=== PATIENT | female | born 1930 | race Caucasian/White ===

== ENCOUNTER 2017-03-15 02:50 | Emergency (ER) | payer OTHER ==
[~2017-03-15] VITALS: Ht 157.5 cm; Wt 65.0 kg
[~2017-03-15 02:50] MED LIST: ACYCLOVIR400 MG PO; AMBIEN5 MG PO; AMITRIPTYLINE H50 MG; AMOXICILLIN875 MG PO; ASPIR 8181 M1 PO; ASPIRIN81 M2 PO; ATIVAN1 MG PO; ATORVASTATIN CA40 MG PO; BACTRIM,SEPT1 TABLET PO; BUSPAR5 MG PO; CALCIUM 600 +1 EA11 PO; CALCIUM 600 +1 EAC7 PO; CELEXA20 MG PO; CLOPIDOGREL75 MG PO; COGENTIN0.5 MG PO; COUGH SYRU100 MG/5 M PO; DESYREL100 MG PO; DULCOLAX10 MG PR; DUONEB 2.5-0.5 M3 ML AEROSOL; DUONEB 2.5-0.5 M3 ML PEP; ELAVIL50 MG PO; FLEET ENEMA-AD118 ML PR; IMDUR60 MG PO; ISOSORBIDE MONO30 MG; ISOSORBIDE MONO60 MG PO; JANUVIA25 MG; JANUVIA25 MG PO; LASIX40 MG PO; LISINOPRIL10 MG PO; LOPRESSOR25 MG PO; MASOPHEN325 MG PO; MELATIN3 MG PO; METAMUCIL CAPSU1 CAP PO; MILK OF MAGNESI10 ML PO; MIRALAX255 GM PO; NORVASC5 MG PO; NOVOLOG MI100 UNIT/4; NOVOLOG MI100 UNIT/4 SC; NOVOLOG MI100 UNIT/4 SQ; OMEPRAZOLE40 M1 PO; PAIN RELIEF650 MG PO; PAXIL40 MG PO; PLAVIX75 MG PO; POLYETHYLENE GL17 GM PO; PRILOSEC20 MG PO; PRINIVIL10 MG PO; REMERON15 M2 PO; REQUIP0.25 MG PO; RISPERDAL0.5 MG PO; RISPERDAL1 MG PO; RISPERIDONE1 MG; SEROQUEL50 MG PO; SIMVASTATIN40 MG; SIMVASTATIN40 MG PO; TRAZODONE HCL100 MG PO; TYLENOL REGULA325 MG PO; VESICARE5 MG; VESICARE5 MG PO; XANAX0.5 MG PO; ZETIA10 MG PO; ZOVIRAX400 MG PO
[2017-03-15 03:28] LABS: BASOPHIL COUNT 0.1 K/uL (0-0.1); EOSINOPHIL (%) 4.9 % (0-5); EOSINOPHIL COUNT 0.4 K/uL (0-0.3); HEMATOCRIT 35.3 % (36.0-46.0); IMMATURE GRANULOCYTE (%) 0.5 % (0.0-0.7); INSTRUMENT ABS NEUTROPHIL CT 5.2 K/uL; LYMPHOCYTE COUNT 1.7 K/uL (1.0-2.8); MCH 29.8 PG (29.0-34.0); MCHC 33.1 G/DL (30.0-36.0); MCV 90.1 FL (83-99); MEAN PLAT.VOLUME 10.4 uM^3 (9.5-12.4); MONOCYTE (%) 7.8 % (3-12); MONOCYTE COUNT 0.6 K/uL (0-0.8); NEUTROPHIL COUNT 5.2 K/uL (1.8-6.4); PLATELET COUNT 171 K/uL (156-360); RBC DIS.WIDTH-SD 42.7 % (39-53); RED BLOOD COUNT 3.92 M/uL (3.80-5.20)
[2017-03-15 03:36] LABS: CHLORIDE 104 mEq/L (99-109); POTASSIUM 4.7 mEq/L (3.7-5.4); SODIUM 140 mEq/L (136-147)
[2017-03-15 03:38] LABS: GLUCOSE 105 mg/dL (70-99)
[2017-03-15 03:40] LABS: ANION GAP 12 MEQ/L (2-14)
[2017-03-15 03:42] LABS: GFR ESTIMATE (CALCULATED) 27 mL/min/
[2017-03-15 03:43] LABS: UREA NITROGEN (BUN) 45 mg/dL (9-23)
[2017-03-15 05:39] VITALS: BP 199/86
== END 2017-03-15 05:48 ==
LOC: EME 02:50
PROVIDERS: Emergency Medicine
DX: F02.81 Dementia in other diseases classified elsewhere, unspecified severity, with behavioral disturbance (principal); E11.9 Type 2 diabetes mellitus without complications; K21.9 Gastro-esophageal reflux disease without esophagitis; I25.10 Atherosclerotic heart disease of native coronary artery without angina pectoris; I25.2 Old myocardial infarction; I11.0 Hypertensive heart disease with heart failure; F41.9 Anxiety disorder, unspecified; F32.9 Major depressive disorder, single episode, unspecified; Z86.73 Personal history of transient ischemic attack (TIA), and cerebral infarction without residual deficits
CPT/HCPCS: 80048; 85025; 90839; 99281; 99284